=== PATIENT | female | born 1970 | race Caucasian/White ===

== ENCOUNTER 2021-07-24 12:59 | Emergency (ER) | payer SELFPAY ==
[~2021-07-24] VITALS: Ht 160 cm; Wt 75.0 kg
[2021-07-24 13:02] VITALS: BP 149/83
[2021-07-24] MEDS ORDERED: ACETAMINOPHEN 325MG TABLET PO ONE (14:15)
[2021-07-24] MEDS ORDERED: NAPR-1176 MT (15:37)
[2021-07-24] MEDS ORDERED: ACET-2708 MT (15:37)
[2021-07-24] MEDS ORDERED: KETOROLAC 30MG/ML VIAL IM ONE (15:45)
== END 2021-07-24 16:07 | disposition home or self-care (01) ==
LOC: ER 12:59
DX: S16.1XXA Strain of muscle, fascia and tendon at neck level, initial encounter (principal); S39.012A Strain of muscle, fascia and tendon of lower back, initial encounter; S20.219A Contusion of unspecified front wall of thorax, initial encounter; S09.8XXA Other specified injuries of head, initial encounter; V43.52XA Car driver injured in collision with other type car in traffic accident, initial encounter; Y93.89 Activity, other specified; Y92.488 Other paved roadways as the place of occurrence of the external cause; Z98.51 Tubal ligation status
CPT/HCPCS: 70450; 71045; 72100; 72125; 81025; 96372; 99285; J1885